=== PATIENT | female | born 1990 | race Caucasian/White ===

== ENCOUNTER 2023-07-01 09:41 | Emergency (ER) | payer SELFPAY ==
[2023-07-01 09:48] VITALS: BP 128/78; PULSE 79; RESP 18; TEMP 36.1; O2SAT 100; BMI 31.1
--- NOTE | 2023-07-01 10:06 | ED_ITS ---
HPI - General Adult General Time Seen by Provider: 10:06 Date Seen: 07/01/23 Chief complaint: Sore Throat Stated complaint: Possible Strep Time Seen by Provider: 07/01/23 09:43 History of Present Illness HPI narrative: This is a very pleasant 32-year-old female with a history of tobacco use, endometriosis, PCOS, acrocyanosis, who presents to the ER today with sore throat, body aches, chills, fatigue, headache. She is concerned that she may have strep and was told to come in by her employer. She developed symptoms about 6 days ago. 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 That has been getting better in subsequent days but she still has some discomfort when she rotates to the right. Since about 3 days ago she has also developed other symptoms of intermittent chills (but no objectively measured fevers) intermittent headaches, sore throat, cough which is sometimes productive of sputum. She is not short of breath. She does not have nasal congestion. She has developed some liquidy stools but no vomiting. No abdominal pain. No rash. She does not have any known sick exposures. No history of heart or lung disease (other than acrocyanosis. She is on propranolol for that). Related Data Home Medications Medication Instructions Recorded Confirmed duloxetine 20 mg capsule,delayed 20 mg PO DAILY 07/01/23 07/01/23 release metformin 500 mg tablet 500 mg PO BID 07/01/23 07/01/23 propranolol 10 mg tablet 10 mg PO Q6H PRN anxiety 07/01/23 07/01/23 Allergies Allergy/AdvReac Type Severity Reaction Status Date / Time oxycodone Allergy Verified 07/01/23 09:52 Penicillins Allergy Verified 07/01/23 09:51 PFSH PFS Social History Smoking Status: Current every day smoker Exam Narrative: Exam Narrative: Constitutional: Appears well-developed and well-nourished. Alert. Conversant. Non toxic. HENT: Head: Atraumatic. Nose: Nose normal. No rhinorrhea. No mucosal swelling. Right ear: Mastoid, pinna, canal are normal. Small amount of cerumen. Left ear: Mastoid, pinna, canal are normal. Mouth/Throat: Oral mucosa is clear and moist. no trismus. Pharynx minimally erythematous. No vesicles. No petechiae on the soft palate. No other intraoral vesicles.. Tonsils appear to be surgically absent. No tonsillar e nlargement, erythema, or exudate. Eyes: Conjunctivae normal. EOM normal. Pupils equal, round, and reactive to light. No scleral icterus. Neck: Normal range of motion. Neck supple. No tracheal deviation present. Cardiovascular: Normal rate, regular rhythm. No gallop. No friction rub. No murmur heard. Symmetric radial artery pulses Pulmonary/Chest: Effort normal. No stridor. No respiratory distress. No wheezes. No rales. No rhonchi . No tenderness. Abdominal: Soft. No HSM. No distension. No mass. No tenderness. No rebound. No guarding. Musculoskeletal: RUE: Normal range of motion. No tenderness. No deformity LUE: Normal range of motion. No tenderness. No deformity RLE: Normal range of motion. No edema. No tenderness. No deformity LLE: Normal range of motion. No edema. No tenderness. No deformity Lymph: She has 1 right-sided submental palpable lymph node. No other anterior or posterior cervical adenopathy. No supraclavicular adenopathy Neurological: Alert and oriented to person, place, and time. Normal strength. CN II-VII intact. No sensory deficit. GCS eye subscore is 4. GCS verbal subscore is 5. GCS motor subscore is 6. Normal coordination Skin: Skin is warm and dry. No rash noted. No pallor. Normal capillary refill. Psychiatric: Normal mood. Normal affect. Const: Vital Signs, click to edit/add: Vital Signs - 24 hr 07/01/23 09:48 Temperature 97.0 F L Pulse Rate [Right Pulse Oximeter] 79 Respiratory Rate 18 Blood Pressure [Ri ght Upper Arm] 128/78 Pulse Oximetry 100 Oxygen Delivery Me thod Room Air Course Reevaluation(s) Reevaluation #1: Recheck-doing well. Discussed negative results. She is pleased and comfortable discharging to home. Vital Signs Vital signs: Initial Vital Signs Temperature 97.0 F L 07/01/23 09:48 Temperature Source Temporal Artery Scan 07/01/23 09:48 Pulse Rate 79 07/01/23 09:48 Respiratory Rate 18 07/01/23 09:48 Blood Pressure 128/78 07/01/23 09:48 Blood Pressure Mean 94 07/01/23 09:48 Blood Pressure Position Sitting 07/01/23 09:48 Pulse Oximetry 100 07/01/23 09:48 Oxygen Delivery Method Room Air 07/01/23 09:48 Vital Signs Temperature 97.0 F L 07/01/23 09:48 Pulse Rate 79 07/01/23 09:48 Respiratory Rate 18 07/01/23 09:48 Blood Pressure 128/78 07/01/23 09:48 Pulse Oximetry 100 07/01/23 09:48 Oxygen Delivery Method Room Air 07/01/23 09:48 Temperature 97.0 F L 07/01/23 09:48 Pulse Rate 79 07/01/23 09:48 Respiratory Rate 18 07/01/23 09:48 Blood Pressure 128/78 07/01/23 09:48 Pulse Oximetry 100 07/01/23 09:48 Oxygen Delivery Method Room Air 07/01/23 09:48 Medical Decision Making MDM Narrative Medical decision making narrative: This patient presents for evaluation of sore throat, hoarse voice, cough, body aches, headache, diarrhea. This is consistent with an upper respiratory tract infection. Viral testing is negative for COVID, influenza a and B, RSV. Strep PCR negative. There is no signs at this point of serious bacterial infection such as OM, RPA, epiglottitis, [employer], strep pharyngitis, pneumonia, sinusitis, meningitis, bacteremia, serious bacterial infection. Given clear lungs, fever curve, no hypoxia and no respiratory distress I do not feel a CXR is indicated at this point as the probability of bacterial pneumonia is very unlikely. There has been some diarrhea but no other significant gastrointestinal symptoms at this point and no signs of dehydration. Close followup with primary care physician is indicated. Return to ED for fever > 103, protracted vomiting, confusion, or other worsening. Lab Data Labs: Lab Results 07/01/23 Range/Units 10:10 SARS-CoV-2 (PCR) Negative SARS-CoV-2 (Negative) Influenza Type A (PCR) Negative PCR FLU A (Negative) Influenza Type B (PCR) Negative PCR FLU B (Negative) RSV (PCR) Negative PCR RSV (Negative) Group A Strep DNA NOT DETECTED (Not Detectd) Discharge Plan Discharge Clinical Impression: URI (upper respiratory infection) Patient Disposition: Home, Self-Care Instructions: Upper Respiratory Infection (DC) Additional Instructions: As we discussed, please come back to the ER right away if you have worsening symptoms especially high fever, trouble breathing, productive cough, bloody sputum, uncontrolled vomiting or diarrhea, dehydration, weakness, or if you have any problems. We would expect, if you have a virus, that your symptoms should be getting better within the next 2-4 days. If you are not substantially improved by next Wednesday, please return to the ER or see your doctor for recheck. Prescriptions: No Action propranolol 10 mg tablet 10 mg PO Q6H PRN (Reason: anxiety) duloxetine 20 mg capsule,delayed release(DR/EC) 20 mg PO DAILY metformin 500 mg tablet 500 mg PO BID Follow Up/Referrals: Provider,Not a Local [Primary Care Provider] - Stand Alone Forms: [employer] Info Instructions
[2023-07-01 11:03] LABS: PCR FLU A Negative PCR FLU A (Negative); PCR FLU B Negative PCR FLU B (Negative); PCR RSV Negative PCR RSV (Negative)
[2023-07-01 11:20] LABS: Strep A DNA Probe* NOT DETECTED (Not Detectd)
[2023-07-01 11:21] LABS: SARS PCR* Negative SARS-CoV-2 (Negative)
== END 2023-07-01 11:52 | disposition home or self-care (01) ==
PROVIDERS: Emergency Provider Emergency Medicine
DX: Z20.822 Contact with and (suspected) exposure to COVID-19 (principal); J06.9 Acute upper respiratory infection, unspecified
CPT/HCPCS: 87631; 87651; 99282; 99283

== ENCOUNTER 2024-02-01 11:08 | Emergency (ER) | payer MEDICAID, SELFPAY ==
[2024-02-01 11:14] VITALS: BP 130/77; PULSE 69; RESP 18; TEMP 37.2; O2SAT 100; BMI 32.0
--- NOTE | 2024-02-01 11:21 | XR_ITS ---
Patient: MARTHA GARCIA Facility:?[facility] Patient ID:?[id number] Site Patient ID:?[id number]. Site :?[id number] Study:?XRay-Extremity Left FOOT-02/01/2024 11:44:24 AM Ordering Physician:?DR. JOAQUIN Final Report: Indication: Dropped a log on foot, pain and bruising Comparison: None available. Technique: AP, lateral, and oblique views left foot were obtained. Findings: There is no displaced fracture or dislocation. The joint spaces are grossly preserved. The soft tissues are unremarkable. Impression: No acute osseus abnormality. Dictated by Frank Carlisle MD @ 02/01/2024 12:06:00 PM Signed by:?Frank Carlisle MD @02/01/2024 12:06:00 PM (Electronic Signature)
--- NOTE | 2024-02-01 11:23 | ED_ITS ---
HPI - General Adult General Chief complaint: Extremity Pain/Injury, Lower Stated complaint: L foot injury Time Seen by Provider: 02/01/24 11:23 History of Present Illness HPI narrative: Patient dropped log on top of left foot down by big toe and has some pain and bruising. She is able to bear weight by walking on outside area. 33 year old woman presenting to the emergency department with pain at the dorsum of the left foot at her great toe after unfortunately she just dropped the edge of a log that she was manipulating upon it. Is able to bear weight if she is walking on the outside of the foot but otherwise when she puts full weight it hurts a good deal. No other injuries noted. Related Data Home Medications Medication Instructions Recorded Confirmed duloxetine 20 mg capsule,delayed 20 mg PO DAILY 07/01/23 07/01/23 release metformin 500 mg tablet 500 mg PO BID 07/01/23 07/01/23 propranolol 10 mg tablet 10 mg PO Q6H PRN anxiety 07/01/23 07/01/23 Allergies Allergy/AdvReac Type Severity Reaction Status Date / Time oxycodone Allergy Verified 07/01/23 09:52 Penicillins Allergy Verified 07/01/23 09:51 Review of Systems Status of ROS: Reports: 6 or more systems reviewed and unremarkable except as noted in History and below PFSH PFSH Social History Smoking Status: Current every day smoker Exam Narrative: Exam Narrative: Pleasant. NAD. Has a few facial piercings. Has left leg up on the bed for exam. There is new bruising at the base the dorsal great toe essentially over the extensor tendon at the MTP joint. No pain is elicited to palpation elsewhere on the foot. There is no dorsal bruising. Most pain elicited with passive flexion and active extension of the great toe. Const: Vital Signs, click to edit/add: Vital Signs - 24 hr 02/01/24 11:14 Temperature 98.9 F Pulse Rate [Pulse Oximeter] 69 Respiratory Rate 18 Blood Pressure [Ri ght Upper Arm] 130/77 Pulse Oximetry 100 Oxygen Delivery Me thod Room Air Documenting provider has reviewed patient's vital signs: yes Course Vital Signs Vital signs: Initial Vital Signs Temperature 98.9 F 02/01/24 11:14 Temperature Source Temporal Artery Scan 02/01/24 11:14 Pulse Rate 69 02/01/24 11:14 Respiratory Rate 18 02/01/24 11:14 Blood Pressure 130/77 02/01/24 11:14 Blood Pressure Mean 94 02/01/24 11:14 Pulse Oximetry 100 02/01/24 11:14 Oxygen Delivery Method Room Air 02/01/24 11:14 Vital Signs Temperature 98.9 F 02/01/24 11:14 Pulse Rate 69 02/01/24 11:14 Respiratory Rate 18 02/01/24 11:14 Blood Pressure 130/77 02/01/24 11:14 Pulse Oximetry 100 02/01/24 11:14 Oxygen Delivery Method Room Air 02/01/24 11:14 Temperature 98.9 F 02/01/24 11:14 Pulse Rate 69 02/01/24 11:14 Respiratory Rate 18 02/01/24 11:14 Blood Pressure 130/77 02/01/24 11:14 Pulse Oximetry 100 02/01/24 11:14 Oxygen Delivery Method Room Air 02/01/24 11:14 Medical Decision Making MDM Narrative Medical decision making narrative: I expect that this is most likely bruised. Mechanism of injury though certainly could have done bony damage. Extensor tendon appears to be intact. Ordering x- rays of the left foot. Ice pack. Review of x-ray of left foot by me looks to be without acute bony abnormality. Radiology over-read obtained later concurs. Adjusting did ask whether not be possible to have some sort of a boot. She is in rather soft trainers. Did place a postop sandal prior to departure. Might benefit from a metatarsal pad to unload the 1st MTP a little bit. See patient discharge plan for further discussion Discharge Plan Discharge Clinical Impression: Contusion Patient Disposition: Home, Self-Care Condition: Stable Additional Instructions: Feel free to cut away the sandal such that you not impacting the top of your foot/toe. If possible ice your foot a couple of times daily over the next few days. Can take up to 800 mg of ibuprofen or up to 1000 mg of acetaminophen per dose. Alternative to the ibuprofen might be up to 500 mg naproxen 2 times daily. If simply not improved, follow up in 7-10 days for re-evaluation. Prescriptions: No Action propranolol 10 mg tablet 10 mg PO Q6H PRN (Reason: anxiety) duloxetine 20 mg capsule,delayed release(DR/EC) 20 mg PO DAILY metformin 500 mg tablet 500 mg PO BID Follow Up/Referrals: Provider,Not a Local [Primary Care Provider] - Stand Alone Forms: [employer] Info Instructions
== END 2024-02-01 12:25 | disposition home or self-care (01) ==
PROVIDERS: Emergency Provider Family Medicine
DX: S90.32XA Contusion of left foot, initial encounter (principal)
CPT/HCPCS: 73630; 99283; 99284

== ENCOUNTER 2024-07-31 07:38 | Emergency (ER) | payer MEDICAID, SELFPAY ==
[2024-07-31 07:49] VITALS: BP 127/78; PULSE 78; RESP 16; TEMP 36.3; O2SAT 99; BMI 27.3
--- NOTE | 2024-07-31 08:00 | ED_ITS ---
HPI - General Adult General Chief complaint: Unspecified Complaint, Adult Stated complaint: LT side face swollen painful migraine on LT side Time Seen by Provider: 07/31/24 07:59 History of Present Illness HPI narrative: migraines for a few days. woke up at 5 and had pressure L side face, then noticed swelling L side of face. c/o L sided head pain from headache she has been happening. denies dental pain. has broken tooth for over a year . pt had been on hctz and recently taken off it on wednesday. 33-year-old woman presenting to the emergency department with concern of headache and left-sided facial swelling. She has been having left-sided headache for a few days. This is not necessarily unusual. Not clear to me that has a formal diagnosis of migraines. This morning with increased pressure and then swelling over the left side of her face. Does not know that she has [place] dental pain. Does have various broken teeth however. No drainage from the teeth. No fever. No trauma otherwise noted. No sore throat or difficulty swallowing or breathing. Did have some soreness in the left maxillary sinus areas described. Is worried about a potential infection here. No relief with ibuprofen or acetaminophen. She does use THC which also has been without relief. Related Data Home Medications ?Medication ?Instructions ?Recorded ?Confirmed metformin 500 mg tablet 500 mg PO BID 07/01/23 07/31/24 propranolol 10 mg tablet 10 mg PO Q6H PRN anxiety 07/01/23 07/31/24 Allergies Allergy/AdvReac Type Severity Reaction Status Date / Time acetaminophen [From Vicodin] Allergy Mild Verified 07/31/24 07:54 hydrocodone [From Vicodin] Allergy Mild Verified 07/31/24 07:54 oxycodone Allergy Verified 07/01/23 09:52 Penicillins Allergy Verified 07/01/23 09:51 Review of Systems Status of ROS: Reports: 6 or more systems reviewed and unremarkable except as noted in History and below PFSH PFSH Social History Smoking Status: Current every day smoker Do you use any of these nicotine containing products: None How often do you have a drink containing alcohol: never How often do you have six or more drinks on one occasion: Never AUDIT-C Alcohol total score: 0 Non-prescribed substance use: denies use Exam Narrative: Exam Narrative: Pleasant. Clearly uncomfortable. Has a few facial piercings none of which appear to be inflamed. Generalized swelling over the left side of her face. Does not have discrete pain to palpation over the jaw. Oropharynx is unremarkable other than dentition which is broken off at the gum line in a few locations. I do not see discrete swelling. She is not tender to percussion. Neck is supple without lymphadenopathy. I do not see cellulitic change on her face. Cranial nerves 2-12 are intact. Pupils are equal briskly reactive. Const: Vital Signs, click to edit/add: Vital Signs - 24 hr 07/31/24 07:49 Temperature 97.4 F L Pulse Rate [Pulse Oximeter] 78 Respiratory Rate 16 Blood Pressure [Ri ght Upper Arm] 127/78 Pulse Oximetry 99 Oxygen Delivery Me thod Room Air Documenting provider has reviewed patient's vital signs: yes Course Vital Signs Vital signs: Initial Vital Signs Temperature 97.4 F L 07/31/24 07:49 Temperature Source Temporal Artery Scan 07/31/24 07:49 Pulse Rate 78 07/31/24 07:49 Respiratory Rate 16 07/31/24 07:49 Blood Pressure 127/78 07/31/24 07:49 Blood Pressure Mean 94 07/31/24 07:49 Blood Pressure Position Sitting 07/31/24 07:49 Pulse Oximetry 99 07/31/24 07:49 Oxygen Delivery Method Room Air 07/31/24 07:49 Vital Signs Temperature 97.4 F L 07/31/24 07:49 Pulse Rate 78 07/31/24 07:49 Respiratory Rate 16 07/31/24 07:49 Blood Pressure 127/78 07/31/24 07:49 Pulse Oximetry 99 07/31/24 07:49 Oxygen Delivery Method Room Air 07/31/24 07:49 Temperature 97.4 F L 07/31/24 07:49 Pulse Rate 78 07/31/24 07:49 Respiratory Rate 18 07/31/24 08:41 Blood Pressure 127/78 07/31/24 07:49 Pulse Oximetry 99 07/31/24 07:49 Oxygen Delivery Method Room Air 07/31/24 07:49 Medical Decision Making MDM Narrative Medical decision making narrative: I do not think there is an abscess here. I would suspect that headache is related to what ever inflammation is causing the swelling. I would suspect dental involvement. I think there is reactive swelling related to dental decay. Possible apical abscess. We did discuss treatment including IV fluids for headache. She feels she can maintain hydration. Discussed pain management. I would initiate also antibiotics. Does have an appointment scheduled mid to 3rd week in August with dental clinic. See patient discharge plan for further discussion Medical Records Medical records reviewed: Yes I reviewed the patient's medical records Discharge Plan Discharge Clinical Impression: Facial swelling, Headache, Dental erosion Patient Disposition: Home, Self-Care Condition: Stable Additional Instructions: Can continue with ibuprofen or naproxen for pain. If not enough over the next day or 2, making available some [place] from [facility]. Also amoxicillin from [facility]. Take this for 8 days. Hope you feel better soon. Follow-up with the dentist as planned. Be seen sooner for marked increase in swelling, increasing tension/heat/redness, fever. Prescriptions: No Action propranolol 10 mg tablet 10 mg PO Q6H PRN (Reason: anxiety) metformin 500 mg tablet 500 mg PO BID Follow Up/Referrals: Provider,Not a Local [Primary Care Provider] - Stand Alone Forms: [employer] Info Instructions
[2024-07-31 08:41] VITALS: RESP 18
== END 2024-07-31 08:40 | disposition home or self-care (01) ==
LOC: ED 08:33
PROVIDERS: Emergency Provider Family Medicine
DX: R51.9 Headache, unspecified (principal); K03.2 Erosion of teeth; R22.0 Localized swelling, mass and lump, head
CPT/HCPCS: 99283; 99284

== ENCOUNTER 2024-12-28 19:31 | Emergency (ER) | payer MEDICAID, SELFPAY ==
--- OUTSIDE RECORDS SUMMARY | 2024-12-28 19:34 | XMS_ITS | Clinical Summary ---
[facility] Organization [facility] [employer] [facility] Address [address] [address] Phone Care Team Providers Care Clay Caster Name Role Phone Nola Yang MD Primary Care Provider [phone] Allergies Active Allergy Reactions Criticality Noted Date Comments Chocolate Hives High 10/03/2013 Hydrocodone Hives,Pruritis High 11/30/2012 Oxybutynin Nausea Only Low 04/03/2020 Penicillins Swelling,Hives,RASH High 08/14/2012 Hydrocodone-Guaifenesin Hives High 11/24/2019 Medications acetaminophen (TYLENOL) 325 MG tablet Take 650 mg by mouth every six hours as needed. 05/13/20 22 Active albuterol HFA (Proair HFA, Ventolin HFA) 108 (90 Base) MCG/ACT inhalation aerosol Inhale 2 Puffs into the lungs every four hours as needed. 02/22/20 21 Active metFORMIN-XR (Glucophage-XR) 500 MG 24 hour tablet Take 500 mg by mouth two times a day. 12/15/19 22 Active ondansetron (Zofran ODT) [address] 4-8 mg under the tongue every eight hours as needed. 10/26/19 23 Active propranolol (Inderal) 10 MG tablet Take 10 mg by mouth one time a day. 10/26/19 23 Active DULoxetine (Cymbalta) 20 MG delayed release capsule Take 20 mg by mouth one time a day. 10/26/19 23 Active cetirizine (ZyrTEC) 10 MG tablet Take 10 mg by mouth one time a day as needed. 07/18/20 21 Active polyethylene glycol 3350 (MiraLax) powder Take 17 g by mouth one time a day as needed for Constipation. Mix in 8 oz of water, juice, soda, coffee, or tea prior to administration. 225 g 01/30/20 Active ibuprofen (Advil) 200 MG capsule Take 3 Capsules by mouth every six hours as needed for Pain . Take 3 capsules by mouth every 6 hours as needed for pain. Take with food or milk. 30 Capsule 01/30/20 23 Active acetaminophen (TYLENOL) 325 MG tablet Take 1-2 Tablets by mouth every six hours as needed for Pain . Limit acetaminophen to 4000 mg per day from all sources. 30 Tablet 1 01/30/20 23 Active oxyCODONE (Roxicodone) 5 MG immediate release tablet Take 1-2 Tablets by mouth every six hours as needed for Pain . 6 Tablet 01/30/20 Active Immunizations Name Administration Dates Next Due DTaP <7 years 09/25/1997, 4,04/01/1994,11/05,09/03/1992 Hepatitis A & B 04/29/2016 Hepatitis A, Ped/Adolescent 2 dose 04/10/2008, Hib (Nos) 06/10/1994, 4,11/05/1992,09/03 Human Papilloma Virus Quadrivalent 04/10/2008,,06/29/2007 IPV 09/25/1997, 4,09/03/1992,11/05 Influenza Quad Preservative Free 019,07/25/2018,07/30/2017,07/21,07/22/2015,07/23/2014 Influenza Trivalent With Preservative 08/02/2013 MMR 09/25/1997,04/01/1994 Meningococcal Unspecified 06/29/2007 TD >7yrs With Preservative 06/17/2004 Tdap (7 years and older) 10/31/2013,11/30/2012 Surgical History Surgery Date Site/Laterality Comments TONSILLECTOMY HYSTEROSCOPY 12/29/2019 Date Of Procedure: 12/29/19 CHOLECYSTECTOMY, LAPAROSCOPIC Date Of Procedure: 03/01 UPPER GASTROINTESTINAL ENDOSCOPY DILATION AND CURETTAGE OF UTERUS 12/29/2019 Date Of Procedure: 12/29/19, Note: PATHOLOGIC DIAGNOSIS:A. Endometrial curettings:1. Proliferative endometrium and benign endocervical tissueB. Right fallopian tube:- Fallopian tube segment, identified in cross section microscopically,including the lumen.C. Left fallopian tube:- Fallopian tube segment, identified in cross section microscopically,including the lumen. ENDOMETRIAL ABLATION 12/29/2019 Date Of Procedure: 12/29/19, Note: MTV REMOVE DRUG IMPLANT DEVICE 12/29/2019 Date Of Procedure: 12/29/19 SALPINGECTOMY 12/29/2019 Bilateral Date Of Procedure: 12/29/19 COLPOSCOPY 10/18/2008 Date Of Procedure: 2008 ADENOIDECTOMY 10/18/2008 Date Of Procedure: 2008 REMOVAL OF KIDNEY STONE HYSTERECTOMY, VAGINAL 01/29/2023 Abdomen/N/A Procedure: Laparoscopic assisted vaginal hysterectomy; Surgeon: Maurizio Gomez MD; Location: [facility] OR Medical History Medical History Date Comments Gallbladder problem Fractured elbow Anxiety Vomiting HPV (human papilloma virus) anogenital infection Fibrocystic breast disease Humerus fracture Polycystic ovary syndrome PTSD (post-traumatic stress disorder) Rib fracture Depression Ovarian cyst Patella fracture Acrocyanosis (HCC) Family History Medical History Relation Comments Asthma Brother 1 RV [place] Anxiety Brother 2 RV [place] Psychiatric Disease Brother 3 [place] - Problem: Psychiatric disorder Bipolar Brother 4 RV [place] Addiction Father [place] - Pr oblem: alcohol abuse, hx of Cardiovascular Disease Father Arthritis Mother RV [place] Lipid Elevation Mother RV [place] - Pr oblem: High Cholesterol Psychiatric Disease Mother RV [place] - Problem: Psychiatric disorder Other Paternal Cousin from a post -op pulmonary embolism at age 30 Relation Status Comments Brother 1 Brother 2 Brother 3 Brother 4 Father Alive Mother Alive Paternal Cousin Social History Tobacco Use Types Packs/Day Years Used Date Smoking Tobacco: Every Day Cigarettes Smokeless Tobacco: Never Tobacco Cessation:Ready to Q uit: No; Counseling Given: Not Answered Alcohol Use Standard Drinks/Week Comments Not Currently 0 (1 standard drink = 0.6 oz pur e alcohol) Humiliation, Afraid, Rape, and Kick questionnair e Answer Date Recorded Within the last year, have y ou been afraid of your partner or ex-partner? No 12/01/2022 Within the last year, have y ou been humiliated or emotionally abused in other ways by your partner or ex-partner? No Within the last year, have y ou been kicked, hit, slapped, or otherwise physically hurt by your partner or ex-partner? No 12/01/2022 Within the last year, have y ou been raped or forced to have any kind of sexual activity by your partner or ex-partner? No 12/01/2022 PHQ-2 Answer Date Recorded PHQ-2 Total 2 12/01/2022 EH IP Custom IPV Answer Date Recorded Do you feel UNSAFE in any of your personal relationships with your family members or any other acquaintances? Deferred 2022 Comments No Sex and Gender Information Value Date Recorded Sex Assigned at Female 01/27/2023 10:17 AM CDT Legal Sex Female 2:59 PM CDT Gender Identity Female 01/27/2023 10:17 AM CDT Sexual Orientation Not on file Obstetrics History Para Term AB IAB SAB Ectopic Molar Multiple Living Live Births 1 1 1 1 1 Date Outcome GA Total Labor Labor/2nd/3rd Weight Sex Type Anes PTL Zulma A1 A5 Name Clin 2013 Term 37w 1d 2920 g (6 lb 7 oz) F Vag-S pont None N Livin g 9 9 Connien lópez Tobar mp, [place] Delivery Location:[facility] Comments:System [employer] nohemy. Please review and update details. Last Filed Vital Signs Vital Sign Reading Time Taken Comments Blood Pressure 139/93 01/29/2023 2:45 PM CDT Pulse 73 01/29/2023 2:45 PM CDT Temperature 36.2 C (97.2 F) 01/29/2023 11:33 AM CDT Respiratory Rate 16 01/29/2023 3:00 PM CDT Oxygen Saturation 95% 01/29/2023 3:00 PM CDT Inhaled Oxygen Concentration - - Weight 83.9 kg (185 lb) 01/29/2023 7:58 AM CDT Height 157.5 cm (5' 2) 01/29/2023 7:58 AM CDT Body Mass Index 33.84 01/29/2023 7:58 AM CDT Plan of Treatment Health Maintenance Due Date Last Done Comments Pneumococcal/PCV20 Vaccine: Pediatrics (2-5 yrs) and At-Risk Patients (6-49 yrs) (Standing Order) (1 of 2 - PCV) 2010 Hepatitis B Vaccine (Standin g Order) (2 of 3 - Hep B Twinrix 3-dose series) 05/27/2016 04/29/2016 TETANUS (Standing Order) 10/31/2023 014, 11/30/2012, 06/17/2004, Additional history exists COVID-19 Vaccine (1 - 2023-2 5 season) 2024 Influenza Vaccine Seasonal (Standing Order) (#1) 2024 08/02/2019, 07/25/2018, 07/30/2017, Additional history exists HPV Vaccine (Standing Order) Completed , 09/14/2007, 06/29/2007 PERTUSSIS (Standing Order) Completed 10/31, 11/30/2012, 09/25/1997, Additional history exists Insurance [facility] Advance Directives For more information, please contact: [phone] * Full Code (Latest Code Status on File) Date Activated Date Inactivated Comments 01/29/2023 7:36 AM 01/29/2023 8:02 PM Care Teams Clay Caster Relationship Specialty Start Date End Date Nola Yang MD K[place]HER [place] [id number] PCP - General Family Medicine 12/01/22
--- OUTSIDE RECORDS SUMMARY | 2024-12-28 19:34 | XMS_ITS | Encounter Summary ---
Author Organization [place] Address [facility] [place] [address] Care Team Providers Care Tools Administrator Name Role Phone No Ref-Primary, Physician Primary Care Provider Sophia Daniels PA-C Unavailable [phone] Reason for Visit * Reason Onset Date Comments Appointment 05/14/2022 Post op Encounter Details Date Type Department Care Team (Late st Contact Info) Description [facility] [place] [address] [place] [phone] Sylvain Castillo MD [address] [place], [place] [address] Appointment (Post op ) Social History Tobacco Use Types Packs/Day Years Used Date Smoking Tobacco: Never Assessed Comments Unknown Sex and Gender Information Value Date Recorded Sex Assigned at Not on file Legal Sex Female 9:48 AM CDT Gender Identity Not on file Sexual Orientation Not on file COVID-19 Exposure Response Date Recorded In the last 10 days, have yo u been in contact with someone who was confirmed or suspected to have Coronavirus/COVID-19? No / Unsure 05/11/2022 10:38 AM CDT documented as of this encounter Miscellaneous Notes * Telephone Encounter - Miky Ruthann - 05/14/2022 1:42 PM CDT [facility] Call Center Phone Message May a detailed message be left on voicemail: yes Reason for Call: Other: . pt stated she had a procedure with on 05/12 (script writer sees it was with ), but Lore stated she needs a 2 week post op, please call her at [phone] thank you Action Taken: Other: uro Travel Screening: Not Applicable documented in this encounter Plan of Treatment Not on file documented as of this encounter Visit Diagnoses Not on filedocumented in this encounter Care Teams Tools Administrator Relationship Specialty Start Date End Date No Ref-Primary, Physician PCP - General 05/01/22 Sophia Daniels, PAEshaC [address] [place] [address] [place] [id number] Physician Commodity Analyst Urology 05/06/22 documented as of this encounter
--- OUTSIDE RECORDS SUMMARY | 2024-12-28 19:34 | XMS_ITS | Encounter Summary ---
Author Organization [facility] [employer] [facility] Address [address] [address] Phone Care Team Providers Care Outside Maintenance Worker Name Role Phone Nola Yang MD Primary Care Provider [phone] Encounter Details Date Type Department Care Team ([facility] st Contact Info) Description 01/22/2023 Prep for Procedure [facility] LUNCH COUNTER MANAGER [address] [place], [place] [id number] Maurizio Gomez MD [address] [facility] [address] [place] [address] Social History Tobacco Use Types Packs/Day Years Used Date Smoking Tobacco: Every Day Cigarettes Smokeless Tobacco: Never Alcohol Use Standard Drinks/Week Comments Not Currently [...] Answer Date Recorded PHQ-2 Total 2 12/01/2022 Comments No Sex and Gender Information Value Date Recorded Sex Assigned at Female 01/27/2023 10:17 AM CDT Legal Sex Female 2:59 PM CDT Gender Identity Female 01/27/2023 10:17 AM CDT Sexual Orientation Not on file COVID-19 Exposure Response Date Recorded In the last 10 days, have yo u been in contact with someone who was confirmed or suspected to have Coronavirus/COVID-19? No / Unsure 01/15/2023 1:24 PM CDT documented as of this encounter Plan of Treatment Not on file documented as of this encounter Visit Diagnoses Not on filedocumented in this encounter Care Teams Outside Maintenance Worker Relationship Specialty Start Date End Date Nola Yang MD [place] [id number] PCP - General Family Medicine 12/01/22 documented as of this encounter
--- OUTSIDE RECORDS SUMMARY | 2024-12-28 19:34 | XMS_ITS | Clinical Summary ---
Author Organization [facility] Address [address] [place] [address] Care Team Providers Care Market Analyst Name Role Phone No Ref-Primary, Physician Primary Care Provider Sophia Daniels PA-C Unavailable Allergies Active Allergy Reactions Criticality Noted Date Comments Chocolate Hives Low 10/03/2013 Hydrocodone Itching Low 11/30/2012 Oxybutynin Nausea and Vomiting 04/03/2020 Penicillins Hives,Rash Low 08/14/2012 Medications naproxen (NAPROSYN) 500 MG tablet Take 1 tablet (500 mg) by mouth 2 times daily (with meals) 24 tablet 2 Active prochlorperazin e (COMPAZINE) 10 MG tablet Take 1 tablet (10 mg) by mouth every 8 hours as needed for nausea or vomiting 10 tablet 2 Active cetirizine (ZYRTEC) 10 MG tablet Take 10 mg by mouth daily as needed for allergies Active propranolol (INDERAL) 10 MG tablet Take 10 mg by mouth daily Active oxybutynin (DITROPAN) 5 MG tabletIndicatio ns:Ureterolithi asis,Bladder spasm Take 1 tablet (5 mg) by mouth 3 times daily as needed for bladder spasms 15 tablet 2 Active acetaminophen (TYLENOL) 325 MG tabletIndicatio ns:Ureterolithi asis Take 2 tablets (650 mg) by mouth every 6 hours as needed for mild pain or other (and adjunct with moderate or severe pain or per patient request) 2 Active tamsulosin (FLOMAX) 0.4 MG capsuleIndicati ons:Ureterolith iasis Take 1 capsule (0.4 mg) by mouth daily 20 capsule 2 Active albuterol (PROAIR HFA/PROVENTIL HFA/VENTOLIN HFA) 108 (90 Base) MCG/ACT inhaler INHALE 2 PUFFS BY MOUTH EVERY 4 HOURS IF NEEDED (SHORTNESS OF BREATH/WHEEZING) . 1 Active clonazePAM (KLONOPIN) 2 MG tablet Take 2 mg by mouth as needed for anxiety 2 Active ALPRAZolam (XANAX) 0.5 MG tablet TAKE 1 TABLET (0.5 MG) BY MOUTH 2 TIMES DAILY IF NEEDED FOR ANXIETY. 1 Active furosemide (LASIX) 20 MG tablet Take 20 mg by mouth daily 1 Active metFORMIN (GLUCOPHAGE XR) 500 MG 24 hr tablet Take 500 mg by mouth 2 times daily 2 Active sertraline (ZOLOFT) 100 MG tablet Take 200 mg by mouth daily 2 Active azithromycin (ZITHROMAX Z-SHASHA) 250 MG tablet Two tablets on the first day, then one tablet daily for the next 4 days 6 tablet 3 Active Additional Information Patient not taking.Reported on 08/07/2024 erythromycin (ROMYCIN) 5 MG/GM ophthalmic ointment Apply thin bed to R eyelid 3 times daily until scratch is healed. 1 g 3 Active amoxicillin (AMOXIL) 500 MG capsule 4 Active Active Problems Problem Noted Date Diagnosed Date Ureterolithiasis 05/11/2022 Social History Tobacco Use Types Packs/Day Years Used Date Smoking Tobacco: Every Day Comments:vapes daily Alcohol Use Standard Drinks/Week Comments Yes 0 (1 standard drink = 0.6 oz pur e alcohol) drinks once a month Adolescent Education Answer Date Record ed Getting School Help Needed Not on file 07/10 Comments No Sex and Gender Information Value Date Recorded Sex Assigned at Not on file Legal Sex Female 9:48 AM CDT Gender Identity Not on file Sexual Orientation Not on file Last Filed Vital Signs Vital Sign Reading Time Taken Comments Blood Pressure 119/72 08/07/2024 10:00 AM CDT Pulse 55 08/07/2024 10:00 AM CDT Temperature 37.1 C (98.7 F) 08/07/2024 10:00 AM CDT Respiratory Rate 20 08/07/2024 10:00 AM CDT Oxygen Saturation 100% 08/07/2024 10:00 AM CDT Inhaled Oxygen Concentration - - Weight 78.5 kg (173 lb) 08/07/2024 10:00 AM CDT Height 157.5 cm (5' 2) 05/25/2023 9:06 PM CDT Body Mass Index 31.64 05/25/2023 9:06 PM CDT Plan of Treatment Health Maintenance Due Date Last Done Comments ADVANCE CARE PLANNING 1991 ANNUAL REVIEW OF HM ORDERS 1991 YEARLY PREVENTIVE VISIT 1994 Pneumococcal Vaccine: Pediatrics (0 to 5 Years) and At-Risk Patients (6 to 49 Years) (1 of 2 - PCV) 2010 HEPATITIS B IMMUNIZATION (2 of 3 - Hep B Twinrix 3-dose series) 05/27/2016 04/29/2016 PAP 03/03/2020 03/03/2017 COVID-19 Vaccine ( season) 2024 INFLUENZA VACCINE (#1) 2024 9, 07/25/2018, 07/30/2017, Additional history exists PHQ-2 (once per calendar year) 2024 DTAP/TDAP/TD IMMUNIZATION (9 - Td or Tdap) 02/28/2034 02/29/2024, 10/31/2013, 11/30/2012, Additional history exists ZOSTER IMMUNIZATION (1 of 2) 2041 MENINGITIS IMMUNIZATION Aged Out 06/29/2007 No l onger eligible based on patient's age to complete this topic HPV IMMUNIZATION Completed 04/10/2008, , 06/29/2007 HIV SCREENING Completed 04/28/2013 HEPATITIS C SCREENING Completed 02/29/2024 Medical Devices Explanted Type Area Fleet Director Device Identifier Shelf Expiration Date Model / Serial / Lot Stent Ureteral Polaris Ultra [id number] - [id number] Implanted:Qty: 1 on 05/12/2022 by Pablo Lr MD at [facility] Explanted:Qty: 1 on 06/05/2022 by Pablo Lr MD at [facility] Stent Left: Urethra [employer] 01/19/2025 [id number] / / [id number] Insurance [facility] Advance Directives For more information, please contact: [phone] * Full Code (Latest Code Status on File) Date Activated Date Inactivated Comments 05/11/2022 8:23 PM 05/13/2022 3:16 PM All basic an d advanced life-sustaining interventions are performed as appropriate Question Answer Comments Code status determined by: Discussion with patie nt/ legal decision maker Care Teams Market Analyst Relationship Specialty Start Date End Date No Ref-Primary, Physician PCP - General 05/01/22 Sophia Daniels PA-C [address] [place] [address] Physician Display Fabricator Urology 05/06/22
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
[2024-12-28 20:00] VITALS: BP 142/78; PULSE 76; RESP 20; TEMP 36.7; O2SAT 98; BMI 25.6
--- NOTE | 2024-12-28 20:03 | CRLHL7_ITS ---
For Patients: As a result of the Cures Act, medical imaging exams and procedure reports are released immediately into your electronic medical record. You may view this report before your referring provider. If you have questions, please contact your health care provider. Indication: Pain. Technique: Right hand 3 views. Comparison: None. Findings: Bones: Alignment is normal. No fractures or bone lesions. Joint spaces: Unremarkable. Soft tissues: Unremarkable. Impression: Unremarkable right hand. Dictated by Rissa Lara MD @ 12/28/2024 8:34:06 PM (Electronically Signed)
--- NOTE | 2024-12-28 20:05 | ED_ITS ---
HPI - General Adult General Chief complaint: Extremity Pain/Injury, Upper Stated complaint: R hand pain Time Seen by Provider: 12/28/24 20:05 History of Present Illness HPI narrative: CC: Right Hand Injury pt. hurt right hand about a month ago and then re-injured it today carrying heavy boxes. cms intact. 34-year-old woman presenting to the emergency department with concern of right hand pain. Lateral aspect. It apparently got pinched between a couple of pots today. She did injure the same area about 1 month ago but was never evaluated for it. Has been wearing a wrist brace. Has actually tried a number of braces. Still quite painful. Can hurt to move her fingers but mostly it hurts on the dorsum of the hand as described. Does a physical job. A few weeks ago did hurt her right hand just throwing a baton toys for her dog. She did not strike her hand against anything at that time. It just is not getting better and then as above worsened today. Related Data Home Medications ?Medication ?Instructions ?Recorded ?Confirmed metformin 500 mg tablet 500 mg PO BID 07/01/23 07/31/24 propranolol 10 mg tablet 10 mg PO Q6H PRN anxiety 07/01/23 07/31/24 Allergies Allergy/AdvReac Type Severity Reaction Status Date / Time acetaminophen (From Vicodin) Allergy Mild Verified 07/31/24 07:54 hydrocodone (From Vicodin) Allergy Mild Verified 07/31/24 07:54 oxycodone Allergy Verified 07/01/23 09:52 Penicillins Allergy Verified 07/01/23 09:51 Review of Systems Status of ROS: Reports: 6 or more systems reviewed and unremarkable except as noted in History and below PFSH PFSH Social History Smoking Status: Current every day smoker Do you use any of these nicotine containing products: None Second hand tobacco smoke exposure: No How often do you have a drink containing alcohol: never How often do you have six or more drinks on one occasion: Never AUDIT-C Alcohol total score: 0 Non-prescribed substance use: marijuana (any form) Exam Narrative: Exam Narrative: Pleasant. NAD. Breathing easily. Favoring her right hand. Numerous tattoos. Examination of the right hand and wrist as the area of question shows good flexion extension of the wrist. She has tenderness to light to medium palpation over the 4th and 5th metacarpals especially the 5th I would say. Not really tender at the wrist. Mildly swollen without erythema. Assisted flexion and extension of her fingers at the MCP joints does not result in any pain. Const: Vital Signs, click to edit/add: Vital Signs - 24 hr 12/28/24 20:00 12/28/24 21:18 12/28/24 21:19 Temperature 98.0 F 98.0 F 98.0 F Pulse Rate [Right Pulse Oximeter] 76 70 70 Respiratory Rate 20 20 20 Blood Pressure [Ri t Upper Arm] 142/78 H 134/74 134/74 Pulse Oximetry 98 98 Oxygen Delivery Me thod Room Air Room Air Documenting provider has reviewed patient's vital signs: yes Course Vital Signs Vital signs: Initial Vital Signs Temperature 98.0 F 12/28/24 20:00 Temperature Source Temporal Artery Scan 12/28/24 20:00 Pulse Rate 76 12/28/24 20:00 Respiratory Rate 20 12/28/24 20:00 Blood Pressure 142/78 H 12/28/24 20:00 Blood Pressure Mean 99 12/28/24 20:00 Blood Pressure Position Sitting 12/28/24 20:00 Pulse Oximetry 98 12/28/24 20:00 Oxygen Delivery Method Room Air 12/28/24 20:00 Vital Signs Temperature 98.0 F 12/28/24 20:00 Pulse Rate 76 12/28/24 20:00 Respiratory Rate 20 12/28/24 20:00 Blood Pressure 142/78 H 12/28/24 20:00 Pulse Oximetry 98 12/28/24 20:00 Oxygen Delivery Method Room Air 12/28/24 20:00 Temperature 98.0 F 12/28/24 21:19 Pulse Rate 70 12/28/24 21:19 Respiratory Rate 20 12/28/24 21:19 Blood Pressure 134/74 12/28/24 21:19 Pulse Oximetry 98 12/28/24 21:18 Oxygen Delivery Method Room Air 12/28/24 21:18 Medical Decision Making MDM Narrative Medical decision making narrative: In busy emergency department, x-rays already been ordered are of this right hand. I think that is appropriate. She does have pain with flexion of the bone as well suggesting possible fracture. Might simply be a periosteal contusion/crush of sorts. Ice pack. X-rays three view of the right head independently reviewed by me was without ac [place] abnormality. Improved somewhat with ice pack. I did fashion a short ulnar gutter Ortho Glass splint add applied this. Noted that it felt more comfortable at least more supported. Puzzling mechanism for this injury a few weeks ago. Does not appear to have ulnar minus variant to suggest TFCC problem noted she really have pain in the wrist. Really is over the dorsum of the hand. Re-examination of the elbow and shoulder and not able to elicit any radicular symptoms or pain. See patient discharge plan for further discussion I would wear this splint for comfort over this next week. Try to ice your hand as discussed at least twice a day. Would take 400-600 mg of ibuprofen 3 times a day. Alternative to that might be up to 500 mg naproxen 2 times daily. Elevate for comfort. Follow-up in a week if really not improved. Medical Records Medical records reviewed: Yes I reviewed the patient's medical records Discharge Plan Discharge Clinical Impression: Hand pain, right Patient Disposition: Home w/ Parent or Adult Condition: Improved Additional Instructions: I would wear this splint for comfort over this next week. Try to ice your hand as discussed at least twice a day. Would take 400-600 mg of ibuprofen 3 times a day. Alternative to that might be up to 500 mg naproxen 2 times daily. Elevate for comfort. Follow-up in a week if really not improved. Prescriptions: No Action propranolol 10 mg tablet 10 mg PO Q6H PRN (Reason: anxiety) metformin 500 mg tablet 500 mg PO BID Follow Up/Referrals: Provider,Not a Local [Primary Care Provider] - Stand Alone Forms: [employer] Info Instructions
--- OUTSIDE RECORDS SUMMARY | 2024-12-28 20:31 | XMS_ITS | Clinical Summary ---
Author Organization [facility] Address [address] [place] [address] Care Team Providers Care Fbi Field Agent Name Role Phone No Ref-Primary, Physician Primary Care Provider Sophia Daniels PA-C Unavailable [phone] Allergies Active Allergy Reactions Criticality Noted Date [...] Completed 02/29/2024 Medical Devices Explanted Type Area Design Engineering Manager Device Identifier Shelf Expiration Date Model / Serial / Lot Stent Ureteral Polaris Ultra [id number] - [id number] Implanted:Qty: 1 on 05/12/2022 by Pablo Lr MD at [facility] Explanted:Qty: 1 on 06/05/2022 by Pablo Lr MD at [facility] Stent Left: Urethra [employer] 01/19/2025 [id number] / / [id number] Insurance [facility] Advance Directives For more information, please contact: [phone] * Full Code (Latest Code Status on File) Date Activated Date Inactivated Comments 05/11/2022 8:23 PM 05/13/2022 3:16 PM All basic an d advanced life-sustaining interventions are performed as appropriate Question Answer Comments Code status determined by: Discussion with patie nt/ legal decision maker Care Teams Fbi Field Agent Relationship Specialty Start Date End Date No Ref-Primary, Physician PCP - General 05/01/22 Sophia Daniels PA-C [id number] [place] [address] Physician Grain Mill Worker Urology 05/06/22
--- OUTSIDE RECORDS SUMMARY | 2024-12-28 20:31 | XMS_ITS | Encounter Summary ---
Author Organization [facility] Address [address] [address] Phone Care Team Providers Care Biomedical Field Service Engineer Name Role Phone Nola Yang MD Primary Care Provider [phone] Encounter Details Date Type Department Care Team ([facility] st Contact Info) Description 01/22/2023 Prep for Procedure [facility] [address] [place], [place] [id number] Maurizio Gomez MD [address] [facility] [address] [place] [address] Social History Tobacco Use Types [...] on filedocumented in this encounter Care Teams Biomedical Field Service Engineer Relationship Specialty Start Date End Date Nola Yang MD K[place]HER [place]EE [id number] PCP - General Family Medicine 12/01/22 documented as of this encounter
--- OUTSIDE RECORDS SUMMARY | 2024-12-28 20:32 | XMS_ITS | Clinical Summary ---
Author Organization [facility] Address [address] [address] Phone Care Team Providers Care Window Shade Installer Name Role Phone Nola Yang MD Primary Care Provider Allergies Active Allergy Reactions Criticality Noted Date [...] vaginal hysterectomy; Surgeon: Maurizio Gomez MD; Location: [facility] OR Medical History Medical History Date Comments Gallbladder problem Fractured elbow Anxiety Vomiting HPV (human papilloma virus) anogenital infection Fibrocystic breast disease Humerus fracture Polycystic ovary syndrome PTSD (post-traumatic stress disorder) Rib fracture Depression Ovarian cyst Patella fracture Acrocyanosis (HCC) Family History Medical History Relation Comments Asthma Brother 1 [place] Anxiety Brother 2 [place] Psychiatric Disease Brother 3 [place] - Problem: Psychiatric disorder Bipolar Brother 4 [place] Addiction Father [place] - Pr oblem: alcohol abuse, hx of Cardiovascular Disease Father Arthritis Mother RV [place] Lipid Elevation Mother RV [place] - Pr oblem: High Cholesterol Psychiatric Disease Mother [place] - Problem: Psychiatric disorder Other Paternal Cousin [...] 9 Connien lópez Tobar mp, [place] Delivery Location:[facility] Comments:System Genera nohemy. Please review and update [...] 10/31, 11/30/2012, 09/25/1997, Additional history exists Insurance [facility] Advance Directives For more information, please contact: [phone] * Full Code (Latest Code Status on File) Date Activated Date Inactivated Comments 01/29/2023 7:36 AM 01/29/2023 8:02 PM Care Teams Window Shade Installer Relationship Specialty Start Date End Date Nola Yang MD KRISTOPHER LEE [id number] PCP - General Family Medicine 12/01/22
--- OUTSIDE RECORDS SUMMARY | 2024-12-28 20:32 | XMS_ITS | Clinical Summary ---
Author Organization [facility] Address [address] [place] [address] Care Team Providers Care Inside Wirer Name Role Phone Maxine Boo MD Unavailable Unavailable Clin, [facility] Pro vider Allergies Active Allergy [...] Type Department Care Team Description 11/14/2024 Telephone [facility] [address] [facility] [address] [place] [phone] Ben Kohler MD Results 10/19/2024 3:30 PM CIVIL ENGINEERING DIRECTOR Office Visit [facility] [address] [facility] [address] [place] [phone] Ben Kohler MD CV Electrophysiology New (Consult per Johann Nicolas MD / DX: PVC (premature ventricular contraction) //PCP: [facility] ) 10/19/2024 Orders Only [facility] [address] [facility] [address] [place] [phone] Ben Kohler MD 1 scan: (1-Ord) [facility] 10/19/2024 Travel from Last 3 Months Immunizations [...] on file Legal Sex Female 7:32 AM CIVIL ENGINEERING DIRECTOR Gender Identity Not on file Sexual Orientation [...] Comments Blood Pressure 116/75 10/19/2024 3:18 PM CIVIL ENGINEERING DIRECTOR Pulse 63 10/19/2024 3:18 PM CIVIL ENGINEERING DIRECTOR Temperature 36.9 C (98.4 F) 04/10/2021 1:57 PM CDT Respiratory Rate 16 12/15/2021 10:0 3 AM CIVIL ENGINEERING DIRECTOR Oxygen Saturation 98% 10/19/2024 3:18 PM CIVIL ENGINEERING DIRECTOR Inhaled Oxygen Concentration - - Weight 79.2 kg (174 lb 11.2 oz) 10/19/2024 3:18 PM CIVIL ENGINEERING DIRECTOR Height 157.5 cm (5' 2) 10/19/2024 3:18 PM CIVIL ENGINEERING DIRECTOR Body Mass Index 31.95 10/19/2024 3:18 PM CIVIL ENGINEERING DIRECTOR Plan of Treatment Health Maintenance Due Date [...] EKG 12 LEAD Today 10/19/2024 3:16 PM CIVIL ENGINEERING DIRECTOR PVC (premature ventricular contraction) ANTI HCV Routine 02/29/2024 2:58 PM CDT Need for hepatitis C screening test VICE PRESIDENT & GENERAL MANAGER [employer] THIN PREP PAP SCREEN IMAGED Routine 03/03/2017 2:54 PM CDT Routine general medical examination at a [facility] specialty hospital facility Cervical cancer screening ANTI HIV 1/2 Routine 04/28/2013 2:33 PM CDT Supervision of normal from Last 3 Months or Most Recently Relevant to Health Maintenance Results * Zio XT (10/27/2024) 10/27/2024 Narrative Maurizio Soares MD - 11/13/2024 12:00 AM CIVIL ENGINEERING DIRECTOR Agree with Findings. Please see scan document for full report. Signed By Jeet Soares MD Procedure Note Maurizio Soares MD - 11/13/2024 Agree with Findings. Please see scan document for full report. Signed By Jeet Soares MD us Ben Kohler MD CARDIAC SERVICES ORD Edite d Result - Final * EKG 12 LEAD (10/19/2024 3:16 PM CIVIL ENGINEERING DIRECTOR) Interpretation Sinus rhythm with sinus arrhythmia with occasional Premature ventricular complexes Poor R-wave progression ; consider anterior infarct, lead placement, or normal variant Abnormal ECG Ventricular Rate 63 BPM Atrial Rate 63 BPM P-R Interval 120 ms QRS Duration 78 ms QT 396 ms QTc 405 ms P [place] 54 degrees R [place] 47 degrees T [place] 57 degrees 10/19/2024 3:16 PM CIVIL ENGINEERING DIRECTOR 10/22/2024 2:09 PM CIVIL ENGINEERING DIRECTOR us Ben Kohler MD EKG ORD Final Resu lt * ANTI HCV (02/29/2024 2:58 PM CDT) HEPATITIS C ANTIBODY Non-Reacti ve Non-React andreina 02/29/2024 9:05 PM CDT [facility] Comment:Please note, per [...] Yang MD SEND OUTS Final R esult [facility] [address] [place] [address], [place] * VICE PRESIDENT & GENERAL MANAGER [employer] THIN PREP PAP SCREEN IMAGED (03/03/2017 2:54 PM CDT) Case Report Gynecologic Cytology Report Case: [id number] Authorizing Provider: Susie Centeno, Collected: 03/03/2017 Isauro MENDEZ Ordering Location: [facility] Received: 03/03/2017 1454 in [place] First Screen: Masha Bledsoe Specimen: VICE PRESIDENT & GENERAL MANAGER [employer] ThinPrep Vial Screening, Cervical 03/10/2017 12:41 PM CDT [facility] ENTRAL LABORATORY INTERPRETATION/ RESULT NEGATIVE FOR INTRAEPITHELIAL LESION OR MALIGNANCY (NIL) (none) 03/10/2017 12:41 PM CDT [facility] ENTRAL LABORATORY NISM(S) Fungal organisms morphologically consistent with Nola species 03/10/2017 12:41 PM CDT [facility] ENTRAL LAB[facility] SPECIMEN ADEQUACY Satisfactory for evaluation Endocervical component present 03/10/2017 12:41 PM CDT [facility] LAB[facility] HPV REQUEST HPV if ASCUS 03/10/2017 12:41 PM CDT [facility] ENTRAL LABORAT[facility] Date of LMP 02/15/17 03/10/2017 12:41 PM CDT [facility] EN[facility] Last Pap Date 04/28/13 03/10/2017 12:41 PM CDT [facility] EN[facility] Last Pap Result NIL 7 12:41 PM CDT [facility] EN[facility] Abnormal Pap or [employer] Bx in last 5 years No 03/10/2017 12:41 PM CDT [facility] EN[facility] Menstrual Status Hormonally Suppressed 03/10/2017 12:41 PM CDT [facility] EN[facility]AL [facility] [employer] Bx Done Today No 03/10/2017 12:41 PM CDT [facility] Additional Information None given 03/10/2017 12:41 PM CDT [facility] Automated Review Successful 03/10/2017 12:41 PM CDT [facility] Comment:Specimen processed s uccessfully by automated supervisor rough end device, ThinPrep Imaging System, [employer] Note The pap test is a screening technique, not a diagnostic procedure. It is used primarily to screen for squamous cancers and precursor lesions. Published studies have shown that it is subject to both false negative and false positive results. The pap test should not be used as the sole means to diagnose or exclude pre-malignant and malignant lesions. Interpreted at [facility] (Central Lab, [facility], [facility], [facility], [facility], [facility], [facility]) 03/10/2017 12:41 PM CDT [facility] Other (Cervical) 03/03/2017 2:54 PM CDT 03/03/2017 2:54 PM CDT us Susie Centeno MD PATHOLOGY/CYTOLOGY F inal Result [facility]TRAL LABORATORY [address] [place] [address], * ANTI HIV 1/2 (04/28/2013 2:33 PM CDT) ANTI HIV 1/2 Non-reacti ve [facility] Blood specimen (specimen) BLOOD SPECIMEN / Unknown 04/28/2013 2:33 PM CDT 04/28/2013 2:17 PM CDT us Trinidad Joseph MD SEND OUTS Final Resu lt [facility] LAB[facility]ATORY [place]NAL ZIP [address] [place] [address] from Last 3 Months or Most Recently Relevant to Health Maintenance Insurance [facility] ACCIDENT FUND [place] [id number] Advance Directives * Full Code (Latest Code [...] 6:24 PM 09/20/2013 9:58 PM Care Teams Inside Wirer Relationship Specialty Start Date End Date Clin, [facility] [address] [place] [address] PCP - General 05/11/22 Maxine Boo MD 01/11/14
--- OUTSIDE RECORDS SUMMARY | 2024-12-28 20:32 | XMS_ITS | Encounter Summary ---
Author Organization [place] Address [facility] [place] [address] Care Team Providers Care Dressing Machine Operator Name Role Phone No Ref-Primary, Physician Primary Care Provider Sophia Daniels PA-C Unavailable [phone] Reason for Visit * Reason Onset Date Comments Appointment 05/14/2022 Post op Encounter Details Date Type Department Care Team (Late st Contact Info) Description 05/14/2022 [facility] [place] [address] [place] [phone] Sylvain Castillo MD [address] [place], [place] [phone] Appointment (Post op ) Social History Tobacco [...] Miky Ruthann - 05/14/2022 1:42 PM CDT [facility] Call Center Phone Message May a detailed message be left on voicemail: yes Reason for Call: Other: . pt stated she had a procedure with on 05/12 (senior medical writer sees it was with ), but Lore stated she needs a 2 week post op, please call her at [phone] thank you Action Taken: Other: uro Travel Screening: Not Applicable documented in this encounter Plan of Treatment Not on file documented as of this encounter Visit Diagnoses Not on filedocumented in this encounter Care Teams Dressing Machine Operator Relationship Specialty Start Date End Date No Ref-Primary, Physician PCP - General 05/01/22 Sophia Daniels, PAEshaC [address] [place] [address] [place] [address] Physician Practice Managers Urology 05/06/22 documented as of this encounter
[2024-12-28 21:18] VITALS: BP 134/74; PULSE 70; RESP 20; TEMP 36.7; O2SAT 98
[2024-12-28 21:19] VITALS: BP 134/74; PULSE 70; RESP 20; TEMP 36.7
== END 2024-12-28 21:19 | disposition home or self-care (01) ==
PROVIDERS: Emergency Provider Family Medicine
DX: M79.641 Pain in right hand (principal); W23.0XXA Caught, crushed, jammed, or pinched between moving objects, initial encounter
CPT/HCPCS: 29125; 73130; 99283; 99284